=== PATIENT | female | born 1990 | race Caucasian/White ===

== ENCOUNTER → 2017-09-28 | Outpatient (CLI) | payer MEDICAID | LOC: BRMIMAGING 14:23 | PROVIDERS: ATTEND Registered Nurse | DX: N91.2 Amenorrhea, unspecified (principal); R10.2 Pelvic and perineal pain | CPT/HCPCS: 76856-PO ==

== ENCOUNTER → 2017-11-30 | Outpatient (CLI) | payer MEDICAID | LOC: BRMIMAGING 09:04 | PROVIDERS: ATTEND Registered Nurse | DX: N63.10 Unspecified lump in the right breast, unspecified quadrant (principal) | CPT/HCPCS: 76641-PO ==